=== PATIENT | male | born 2005 | race Caucasian/White ===

== ENCOUNTER 2023-11-23 18:16 | Inpatient (IN) ==
--- NOTE | 2023-11-23 18:31 | ED Triage Note ---
Date of Service November 23, 2023 Provider in Triage Author: Azalia Garcia History of Present Illness This patient was briefly evaluated while in triage. An abbreviated physical exam was performed. This patient is a 18-year-old Male who presents to the ED for evaluation of back pain. He states that 5 days ago, he was squatting and thought he pulled a muscle because he had some discomfort afterward. He developed a sharp pain in his back a few days afterward. He states pain radiates up his neck and into his chest. It is painful to breathe. Physical Exam GENERAL: Non-toxic and in no acute distress. HEENT: Pupils equal. No obvious scleral icterus. HEART: Regular rate and rhythm. LUNGS: Clear to auscultation. No accessory muscle use. NEURO: Alert and oriented. No obvious neurological deficits on quick neuro exam. Initial orders for labs and / or imaging were placed and patient was placed in the waiting area until a bed is available. Please see further documentation for the full ED course.
--- NOTE | 2023-11-23 19:07 | XRay Report ---
XR chest 1V portable CLINICAL HISTORY: Chest pain, nonspecific TECHNIQUE: Single frontal radiograph of the chest was obtained. Comparison: None available at the time of this dictation. FINDINGS: No lines and tubes are seen. The cardiomediastinal silhouette is normal. The lungs are clear. No evid ence of pleural effusion or pneumothorax. IMPRESSION: No acute chest disease. ACT 112: Negative or not required by law. Electronically signed by: Camron Singh M.D. 11/23/2023 7:06 PM
[2023-11-23 19:25] LABS: Basophils # (auto) 0.03 K/uL (0.00-0.20); Basophils % (auto) 0.3 %; Eosinophils # (auto) 0.09 K/uL (0.00-0.50); Eosinophils % (auto) 0.9 %; Hematocrit (blood only) 44.5 % (42.0-52.0); Hemoglobin 15.1 g/dl (14.0-18.0); Immature Granulocytes # (auto) 0.04 K/uL (0.01-0.20); Immature Granulocytes % (auto) 0.4 %; Lymphocytes # (auto) 1.25 K/uL (1.20-3.40); Lymphocytes % (auto) 11.9 %; Mean Corpuscular Hemoglobin 29.7 pg (25.0-34.0); Mean Corpuscular Hgb Conc 33.9 g/dL (32.0-36.0); Mean Corpuscular Volume 87.4 fL (80.0-100.0); Mean Platelet Volume 9.7 fL (9.4-12.4); Monocytes # (auto) 1.15 K/uL (0.11-0.59); Neutrophils # (auto) 7.94 K/uL (1.40-6.50); Neutrophils % (auto) 75.5 %; Platelet Count 245 K/uL (130-400); RDW Coefficient of Variation 12.9 % (11.5-14.5); RDW Standard Deviation 41.6 fL (36.4-46.3); Red Blood Count 5.09 M/uL (4.70-6.10)
[2023-11-23 19:40] LABS: Albumin Globulin Ratio 1.5 (0.9-2); Albumin Level 4.3 gm/dl (3.4-5.0); Bilirubin,Total 0.7 mg/dl (0.2-1.0); Calcium 9.2 mg/dl (8.6-10.3); Creatinine Clr Calc Pharmacy 122.7 ml/min; Est GFR (African American) 131.4 ml/min; Est GFR (Non-African American) 113.3 ml/min; Globulin 2.9 gm/dl (2.5-4.0); Potassium 3.9 mmol/L (3.5-5.1); Total Protein 7.2 gm/dl (6.0-8.3)
[2023-11-23 19:50] LABS: Troponin I High Sensitivity 1089.5 pg/ml (0-20)
[2023-11-23] MEDS: OPTIRAY 320 125ml IV ONE (20:16)
--- NOTE | 2023-11-23 20:42 | Emergency Department Note ---
Impression & Plan Myocarditis, Elevated troponin ED Provider Note NAME: MAURICIO OVIEDO AGE: 18 SEX: M : 2005 ARRIVES VIA: Walk-In INFORMANT: Patient, ED PROVIDER(S): [place] MD CHIEF COMPLAINT: Chest/back pain HPI: This is a 18-year-old male presenting for chest and back pain. Patient states that on Thursday, 5 days ago, he was lifting and doing light duty. He states he warmed up and did squats. He notes that he felt somewhat sore in his back but then by Thursday he was having different and worsening back/chest pain. He states it was worse with deep breath as well as movement. He notes when he leans forward the pain is worse as well. He notes no nausea, vomiting or diarrhea has not had any fevers or chills. No congestion. He has no arm or leg weakness/paresthesias. He noted no tearing sensation. This was not sudden onset. He does not feel short of breath currently. ROS: See above HPI for pertinent positives & negatives. A total of 10 systems reviewed and were otherwise negative. PAST MEDICAL HISTORY: See Below PAST SURGICAL HISTORY: See Below FAMILY HISTORY: See Below SOCIAL HISTORY: See Below HOME MEDICATIONS: See Below ALLERGIES: See Below VITALS: See Below PHYSICAL EXAMINATION: General: resting comfortably in no acute distress Head: Normocephalic and atraumatic Eyes: Normal inspection, extraocular muscles intact Ear, nose, throat: Normal external exam Neck: Normal range of motion Respiratory: lungs clear to auscultation bilaterally Cardiovascular: Regular rate/rhythm, no murmur GI: soft, nontender, no guarding or rebound Extremities: nontender, moves all extremities, 2+ pulses in all extremities Neuro: The patient awake and alert, appropriately conversive, no focal deficits, symmetric faces Skin: Warm, dry, and intact MEDICAL DECISION MAKING: This is a 18-year-old male patient with chest and back pain. Consider multiple etiology including muscle skeletal back pain, PE, ACS, myocarditis, dissection. -ECG independently interpreted by me with normal sinus rhythm, rate of 93, normal axis, normal ME, normal QRS, normal QTc, inferior T wave inversions in leads II, III and aVF, likely J-point elevation in leads V2 and V3, large amplitude QRS complex -Patient troponin comes back in over 1000 at this time. -Due to patient's significant elevated troponin, chest/back pain, consider dissection after history of heavy lifting. Patient CTA chest/abdomen/pelvis. Also consider PE clinically. Patient has had reassuring physical exam with normal pulses, normal neuroexam. -I accompanied the patient to CT scanner due to the critical nature of patient's current complaint. Initially ordered imaging as without contrast in arterial phase. In order to best understand abdominal pathology, also added a venous phase. No obvious dissection was noted upon my initial read in the CT room. -CT only reveals a intussusception of the small bowel. -Discussed with ANKIT Schuler with general surgery who evaluated the patient but likely not a surgical candidate -Discussed with Dr. Kaur, interventional cardiology on-call who I discussed the case with. Made aware of patient's story, EKG changes and sent a picture of the EKG. He thinks that it may be related to myocarditis clinically. Currently not a Candidate. -Will admit patient to medical service suspecting myocarditis. Patient made aware of this finding and need for admission who is comfortable with this plan. Differential diagnosis: Dissection, ACS, PE, musculoskeletal injury, myocarditis, pericarditis ER treatment provided: See below Diagnostics interpreted by me: ECG: See above Cardiac Monitoring: An order was placed for continuous cardiac monitoring. The monitor shows a rate of 99 with sinus rhythm. Laboratory studies: As stated above and show below. Imaging studies: See below. Critical Care Note: I have personally spent 60 minutes of critical care time in the direct management of this patient. This includes bedside care, interpretation of diagnostic studies, and testing, discussion with consultants, patient, and family members, and other required patient management activities. This 60 minutes is in excess of all separately billable procedures. Past Med/Surg History Social History Smoking Status: Never smoker Hx Substance Use: No Preferred Language: Pashto Communication Ability: Effective Practice Billing Associate Required: No Beliefs That Will Affect Care: None Current Living Situation Comment: Apartment in college Other Information That Helps Us Care for You: No Feels Safe at Home: Yes Safety Concerns: Feels Safe At This Time Assistive Devices: None Allergies Allergies Allergy/AdvReac Type Severity Reaction Status Date / Time No Known Allergies Allergy Verified 11/23/23 23:09 Home Meds Home Medications Medication Instructions Recorded Confirmed ibuprofen 200 mg tablet 400 mg PO BID PRN Pain 11/23/23 11/23/23 ibuprofen-diphenhydramine citrate 2 cap PO HS PRN Sleep 11/23/23 11/23/23 200 mg-38 mg tablet (Advil PM) Results & Data (ED) Vital Signs Vital Signs - 24 hr 11/23/23 18:27 11/23/23 20:01 11/23/23 20:04 Temperature 37 C Temperature Source Temporal Artery Scan Pulse Rate 110 H 88 Pulse Rate [Apical] 86 Respiratory Rate 18 30 H Respiratory Effort / Characteristics Non-Labored Respiratory Depth Normal Blood Pressure 129/75 Blood Pressure [Right Arm] 117/69 Blood Pressure Mean 93 Blood Pressure Mean [Right Arm] 85 Pulse Oximetry 99 99 Oxygen Delivery Method Room Air Room Air Sepsis Recent Fever Within 48 Hours No Sepsis New/Unexplained Change in Mental Status N/A Sepsis Action Taken by Nursing No Action Required 11/23/23 20:39 11/23/23 22:00 Temperature Temperature Source Pulse Rate 91 H 94 H Pulse Rate [Apical] Respiratory Rate 24 Respiratory Effort / Characteristics Respiratory Depth Blood Pressure 99/69 L Blood Pressure [Right Arm] Blood Pressure Mean 87 Blood Pressure Mean [Right Arm] Pulse Oximetry 98 97 Oxygen Delivery Method Room Air Room Air Sepsis Recent Fever Within 48 Hours Sepsis New/Unexplained Change in Mental Status Sepsis Action Taken by Nursing Laboratory Data 11/23/23 19:11 11/23/23 19:11 Lab Results 11/23/23 11/23/23 11/23/23 Range/Units 19:11 19:20 20:15 WBC 10.50 (4.8-10.8) K/ul RBC 5.09 (4.70-6.10) M/uL Hgb 15.1 (14.0-18.0) g/dl Hct 44.5 (42.0-52.0) % MCV 87.4 (80.0-100.0) fL MCH 29.7 (25.0-34.0) pg MCHC 33.9 (32.0-36.0) g/dL RDW Std Deviation 41.6 (36.4-46.3) fL RDW Coeff of Kennedy 12.9 (11.5-14.5) % Plt Count 245 (130-400) K/uL MPV 9.7 (9.4-12.4) fL Immature Gran % (Auto) 0.4 % Neut % (Auto) 75.5 % Lymph % (Auto) 11.9 % Troup % (Auto) 11.0 % Eos % (Auto) 0.9 % Baso % (Auto) 0.3 % Neut # (Auto) 7.94 H (1.40-6.50) K/uL Lymph # (Auto) 1.25 (1.20-3.40) K/uL Troup # (Auto) 1.15 H (0.11-0.59) K/uL Eos # (Auto) 0.09 (0.00-0.50) K/uL Baso # (Auto) 0.03 (0.00-0.20) K/uL Immature Gran # (Auto) 0.04 (0.01-0.20) K/uL ESR 30 H (0-15) mm/hr D-Dimer Cancelled 1310 H* Sodium 138 (136-145) mmol/L Potassium 3.9 (3.5-5.1) mmol/L Chloride 103 (98-107) mmol/L Carbon Dioxide 28 (21-32) mmol/L Anion Gap 7 (3-11) BUN 23 (6-23) mg/dl Creatinine 0.96 (0.6-1.4) mg/dl Est Cr Clr Drug Dosing 122.7 ml/min Est GFR ( Amer) 131.4 ml/min Est GFR (Non-Af Amer) 113.3 ml/min BUN/Creatinine Ratio 24.0 H (10-20) Glucose 106 H (70-99(Fasting)) mg/dl Lactate 0.9 (0.4-2.0) mmol/L Calcium 9.2 (8.6-10.3) mg/dl Total Bilirubin 0.7 (0.2-1.0) mg/dl AST 31 (13-39) U/L ALT 30 (7-52) U/L Alkaline Phosphatase 59 (34-104) U/L Total Creatine Kinase 164 (30-223) U/L Troponin I High Sens 1089.5 H* (0-20) pg/ml Total Protein 7.2 (6.0-8.3) gm/dl Albumin 4.3 (3.4-5.0) gm/dl Globulin 2.9 (2.5-4.0) gm/dl Albumin/Globulin Ratio 1.5 (0.9-2) Adenovirus (PCR) Not Detected (NotDetected) Anaplasma Smear See Comment Babesia Smear See Comment B. pertussis DNA (PCR) Not Detected (NotDetected) B.parapertussis DNA PCR Not Detected (NotDetected) C. pneumoniae DNA (PCR) Not Detected (NotDetected) Coronavirus OC43 (PCR) Not Detected (NotDetected) Coronavirus HKU1 (PCR) Not Detected (NotDetected) Coronavirus 229E (PCR) Not Detected (NotDetected) SARS-CoV-2 (PCR) Not Detected (NotDetected) Coronavirus NL63 (PCR) Not Detected (NotDetected) Human Metapneumovir PCR Not Detected (NotDetected) Influenza Type A (PCR) Not Detected (NotDetected) Influenza Type B (PCR) Not Detected (NotDetected) M. pneumoniae (PCR) Not Detected (NotDetected) Parainfluenza 1 (PCR) Not Detected (NotDetected) Parainfluenza 2 (PCR) Not Detected (NotDetected) Parainfluenza 3 (PCR) Not Detected (NotDetected) Parainfluenza 4 (PCR) Not Detected (NotDetected) RSV (PCR) Not Detected (NotDetected) Entero/Rhino (PCR) Not Detected (NotDetected) 11/23/23 Range/Units 20:45 WBC (4.8-10.8) K/ul RBC (4.70-6.10) M/uL Hgb (14.0-18.0) g/dl Hct (42.0-52.0) % MCV (80.0-100.0) fL MCH (25.0-34.0) pg MCHC (32.0-36.0) g/dL RDW Std Deviation (36.4-46.3) fL RDW Coeff of Kennedy (11.5-14.5) % Plt Count (130-400) K/uL MPV (9.4-12.4) fL Immature Gran % (Auto) % Neut % (Auto) % Lymph % (Auto) % Troup % (Auto) % Eos % (Auto) % Baso % (Auto) % Neut # (Auto) (1.40-6.50) K/uL Lymph # (Auto) (1.20-3.40) K/uL Troup # (Auto) (0.11-0.59) K/uL Eos # (Auto) (0.00-0.50) K/uL Baso # (Auto) (0.00-0.20) K/uL Immature Gran # (Auto) (0.01-0.20) K/uL ESR (0-15) mm/hr D-Dimer Sodium (136-145) mmol/L Potassium (3.5-5.1) mmol/L Chloride (98-107) mmol/L Carbon Dioxide (21-32) mmol/L Anion Gap (3-11) BUN (6-23) mg/dl Creatinine (0.6-1.4) mg/dl Est Cr Clr Drug Dosing ml/min Est GFR ( Amer) ml/min Est GFR (Non-Af Amer) ml/min BUN/Creatinine Ratio (10-20) Glucose (70-99(Fasting)) mg/dl Lactate (0.4-2.0) mmol/L Calcium (8.6-10.3) mg/dl Total Bilirubin (0.2-1.0) mg/dl AST (13-39) U/L ALT (7-52) U/L Alkaline Phosphatase (34-104) U/L Total Creatine Kinase (30-223) U/L Troponin I High Sens 870.6 H* D (0-20) pg/ml Total Protein (6.0-8.3) gm/dl Albumin (3.4-5.0) gm/dl Globulin (2.5-4.0) gm/dl Albumin/Globulin Ratio (0.9-2) Adenovirus (PCR) (NotDetected) Anaplasma Smear Babesia Smear B. pertussis DNA (PCR) (NotDetected) B.parapertussis DNA PCR (NotDetected) C. pneumoniae DNA (PCR) (NotDetected) Coronavirus OC43 (PCR) (NotDetected) Coronavirus HKU1 (PCR) (NotDetected) Coronavirus 229E (PCR) (NotDetected) SARS-CoV-2 (PCR) (NotDetected) Coronavirus NL63 (PCR) (NotDetected) Human Metapneumovir PCR (NotDetected) Influenza Type A (PCR) (NotDetected) Influenza Type B (PCR) (NotDetected) M. pneumoniae (PCR) (NotDetected) Parainfluenza 1 (PCR) (NotDetected) Parainfluenza 2 (PCR) (NotDetected) Parainfluenza 3 (PCR) (NotDetected) Parainfluenza 4 (PCR) (NotDetected) RSV (PCR) (NotDetected) Entero/Rhino (PCR) (NotDetected) Administered Medications Acetaminophen (Acetaminophen 325 Mg Tab) 650 mg PO Q4H PRN PRN Reason: Pain or Fever Stop: 12/23/23 23:50 Last Admin: 11/24/23 08:39 Dose: 650 mg Documented By: MTP Metoprolol Tartrate (Metoprolol Tartrate 25 Mg Tab) 12.5 mg PO BID KIRA Stop: 12/24/23 11:29 Last Admin: 11/24/23 12:13 Dose: 12.5 mg Documented By: ISIDRA Tramadol HCl (Tramadol Hcl 50 Mg Tablet) 50 mg PO Q6H PRN PRN Reason: Pain Stop: 12/23/23 23:42 Last Admin: 11/24/23 06:06 Dose: 50 mg Documented By: Admin: 11/24/23 00:11 Dose: 50 mg Documented By: SYDNEY Discontinued Medications Acetaminophen (Acetaminophen 1000 Mg/100 Ml Iv) Confirm Administered Dose 1,000 mg IV .STK-MED ONE Stop: 11/23/23 22:18 Last Admin: 11/23/23 22:37 Dose: 1,000 mg Documented By: SYDNEY Colchicine (Colchicine 0.6 Mg Tab) 0.6 mg PO NOW ONE Stop: 11/24/23 11:23 Last Admin: 11/24/23 12:15 Dose: 0.6 mg Documented By: ISIDRA Acetaminophen (Ofirmev) 1,000 mg in 100 mls @ 400 mls/hr IV NOW STA Stop: 11/23/23 22:17 Last Admin: 11/23/23 22:39 Dose: Not Given Documented By: SYDNEY Ioversol (Optiray 320 125ml) 118 ml IV ONCE ONE Stop: 11/23/23 20:16 Last Admin: 11/23/23 20:16 Dose: 118 ml Documented By: KULWANT Ketorolac Tromethamine (Ketorolac 30 Mg/Ml Vial) 30 mg IV NOW ONE Stop: 11/24/23 11:21 Last Admin: 11/24/23 11:55 Dose: 30 mg Documented By: ISIDRA Miscellaneous Information (Patient's Allergy Info Needs Entered) 1 each N/A Q30M [facility] Stop: 12/23/23 18:26 Last Admin: 11/23/23 22:38 Dose: Not Given Documented By: Admin: 11/23/23 22:37 Dose: Not Given Documented By: Admin: 11/23/23 22:36 Dose: Not Given Documented By: [facility] Admin: 11/23/23 22:36 Dose: Not Given Documented By: [facility] Admin: 11/23/23 22:36 Dose: Not Given Documented By: Admin: 11/23/23 22:36 Dose: Not Given Documented By: [facility] Admin: 11/23/23 22:36 Dose: Not Given Documented By: [facility] Admin: 11/23/23 22:36 Dose: Not Given Documented By: [facility] Admin: 11/23/23 22:36 Dose: 1 each Documented By: SYDNEY Imaging Data Radiologist's Impression: Chest X-Ray 11/23/23 18:31 XR chest 1V portable CLINICAL HISTORY: Chest pain, nonspecific TECHNIQUE: Single frontal radiograph of the chest was obtained. Comparison: None available at the time of this dictation. FINDINGS: No lines and tubes are seen. The cardiomediastinal silhouette is normal. The lungs are clear. No evidence of pleural effusion or pneumothorax. IMPRESSION: No acute chest disease. ACT 112: Negative or not required by law. Electronically signed by: Camron Singh M.D. 11/23/2023 7:06 PM Abdomen/Pelvis CTA 11/23/23 20:03 Exam(s): CTA ABDOMEN + PELVIS W/WO Contrast IV Amt: 118ml optiray 320 EXAM: CT Abdomen and Pelvis Without and With Intravenous Contrast CLINICAL HISTORY: Reason for exam: dissection. TECHNIQUE: Axial computed tomographic images of the abdomen and pelvis without and with intravenous contrast. CTDI is 76 mGy and DLP is 2696.61 mGy-cm. Automated exposure control was utilized for the study. A dose lowering technique was utilized adhering to the principles of ALARA. Delayed imaging was performed. CONTRAST: Patient received 118ml optiray 320 of IV contrast COMPARISON: CT abdomen pelvis 12/13/2022.. FINDINGS: VASCULATURE: Aorta: No acute findings. No abdominal aortic aneurysm. No dissection. Celiac trunk and mesenteric arteries: No acute findings. No occlusion or significant stenosis. Renal arteries: No acute findings. No occlusion or significant stenosis. Iliac arteries: No acute findings. No occlusion or significant stenosis. Lung bases: Unremarkable. No mass. No consolidation. ABDOMEN: Liver: Unremarkable. No mass. Gallbladder and bile ducts: Unremarkable. No calcified stones. No ductal dilation. Pancreas: Unremarkable. No ductal dilation. No mass. Spleen: Unremarkable. No splenomegaly. Adrenals: Unremarkable. No mass. Kidneys and ureters: Unremarkable. No obstructing stones. No hydronephrosis. No solid mass. Stomach and bowel: Short segment small bowel small bowel intussusception in the lower abdomen just to the left of midline. No obstruction. No mucosal thickening. PELVIS: Appendix: No findings to suggest acute appendicitis. Bladder: Unremarkable. No stones. No mass. Reproductive: Unremarkable as visualized. ABDOMEN and PELVIS: Intraperitoneal space: Trace fluid in the pelvis. No free air. Bones/joints: L4 limbus vertebra. No acute fracture. No dislocation. Soft tissues: Unremarkable. Lymph nodes: Unremarkable. No enlarged lymph nodes. IMPRESSION: 1. No evidence of abdominal aortic aneurysm or dissection. 2. Short segment small bowel-small bowel intussusception in the lower abdomen just to the left of midline. This is most likely a transient incidental finding. Electronically signed by: Souleymane Patterson MD 11/23/23 20:58 PM Chest CTA 11/23/23 20:03 Exam(s): CTA CHEST W/WO Contrast IV Amt: 118ML OPTIRAY 320 EXAM: CT Angiography Chest Without and With Intravenous Contrast CLINICAL HISTORY: Reason for exam: Dissection. TECHNIQUE: Axial computed tomographic angiography images of the chest without and with intravenous contrast. CTDI is 76 mGy and DLP is 2696.61 mGy-cm. Automated exposure control was utilized for the study. A dose lowering technique was utilized adhering to the principles of ALARA. MIP reconstructed images were created and reviewed. CONTRAST: Patient received 118ML OPTIRAY 320 of IV contrast COMPARISON: None. FINDINGS: Pulmonary arteries: Unremarkable. No pulmonary embolism. Aorta: No acute findings. No thoracic aortic aneurysm. Lungs: Unremarkable. No mass. No consolidation. Pleural space: Unremarkable. No significant effusion. No pneumothorax. Heart: Unremarkable. No cardiomegaly. No significant pericardial effusion. No evidence of RV dysfunction. Bones/joints: No acute fracture. No dislocation. Soft tissues: Unremarkable. Lymph nodes: Unremarkable. No enlarged lymph nodes. IMPRESSION: No acute abnormality. Electronically signed by: Souleymane Pattersno MD 11/23/23 20:48 PM Discharge Plan Visit Data Chief Complaint: Back Injury/Pain Stated Complaint: BACK/CHEST PAIN FROM LIFTING ED Provider: [place] Discharge Problem: Myocarditis, Elevated troponin Patient Disposition: Admitted As Inpatient Discharge Instructions Interventions: ED Discharge Assessment Last Done: 11/23/23 23:51
--- NOTE | 2023-11-23 20:49 | CT Scan Report ---
Exam(s): CTA CHEST W/WO Contrast IV Amt: 118ML OPTIRAY 320 EXAM: CT Angiography Chest Without and With Intravenous Contrast CLINICAL HISTORY: Reason for exam: Dissection. TECHNIQUE: Axial computed tomographic angiography images of the chest without and with intravenous contrast. CTDI is 76 mGy and DLP is 2696.61 mGy-cm. Automated exposure control was utilized for the study. A dose lowering technique was utilized adhering to the principles of ALARA. MIP reconstructed images were created and reviewed. CONTRAST: Patient received 118ML OPTIRAY 320 of IV contrast COMPARISON: None. FINDINGS: Pulmonary arteries: Unremarkable. No pulmonary embolism. Aorta: No acute findings. No thoracic aortic aneurysm. Lungs: Unremarkable. No mass. No consolidation. Pleural space: Unremarkable. No significant effusion. No pneumothorax. Heart: Unremarkable. No cardiomegaly. No significant pericardial effusion. No evidence of RV dysfunction. Bones/joints: No acute fracture. No dislocation. Soft tissues: Unremarkable. Lymph nodes: Unremarkable. No enlarged lymph nodes. IMPRESSION: No acute abnormality. Electronically signed by: Souleymane Patterson MD 11/23/23 20:48 PM
--- NOTE | 2023-11-23 20:59 | CT Scan Report ---
Exam(s): CTA ABDOMEN + PELVIS W/WO Contrast IV Amt: 118ml optiray 320 EXAM: CT Abdomen and Pelvis Without and With Intravenous Contrast CLINICAL HISTORY: Reason for exam: dissection. TECHNIQUE: Axial computed tomographic images of the abdomen and pelvis without and with intravenous contrast. CTDI is 76 mGy and DLP is 2696.61 mGy-cm. Automated exposure control was utilized for the study. A dose lowering technique was utilized adhering to the principles of ALARA. Delayed imaging was performed. CONTRAST: Patient received 118ml optiray 320 of IV contrast COMPARISON: CT abdomen pelvis 12/13/2022.. FINDINGS: VASCULATURE: Aorta: No acute findings. No abdominal aortic aneurysm. No dissection. Celiac trunk and mesenteric arteries: No acute findings. No occlusion or significant stenosis. Renal arteries: No acute findings. No occlusion or significant stenosis. Iliac arteries: No acute findings. No occlusion or significant stenosis. Lung bases: Unremarkable. No mass. No consolidation. ABDOMEN: Liver: Unremarkable. No mass. Gallbladder and bile ducts: Unremarkable. No calcified stones. No ductal dilation. Pancreas: Unremarkable. No ductal dilation. No mass. Spleen: Unremarkable. No splenomegaly. Adrenals: Unremarkable. No mass. Kidneys and ureters: Unremarkable. No obstructing stones. No hydronephrosis. No solid mass. Stomach and bowel: Short segment small bowel small bowel intussusception in the lower abdomen just to the left of midline. No obstruction. No mucosal thickening. PELVIS: Appendix: No findings to suggest acute appendicitis. Bladder: Unremarkable. No stones. No mass. Reproductive: Unremarkable as visualized. ABDOMEN and PELVIS: Intraperitoneal space: Trace fluid in the pelvis. No free air. Bones/joints: L4 limbus vertebra. No acute fracture. No dislocation. Soft tissues: Unremarkable. Lymph nodes: Unremarkable. No enlarged lymph nodes. IMPRESSION: 1. No evidence of abdominal aortic aneurysm or dissection. 2. Short segment small bowel-small bowel intussusception in the lower abdomen just to the left of midline. This is most likely a transient incidental finding. Electronically signed by: Souleymane Patterson MD 11/23/23 20:58 PM
--- NOTE | 2023-11-23 21:49 | Surgery Consultation ---
<Statement entered by Macario Yang, - 11/24/23 19:07> This case was discussed with the surgical PA Date of Consultation November 23, 2023 Assessment & Plan (1) Abnormal CT scan: I evaluated the patient emergency department in room A9 due to concerns for transient small bowel intussusception. As noted in the history present illness patient has absolutely no abdominal complaints specifically no abdominal pain, no nausea or vomiting, no signs or symptoms of GI bleed, and is having normal bowel movements earlier today. At the time of my exam his abdominal exam is entirely benign. He does not have leukocytosis, elevated lactic acid level, or elevated creatinine. I suspect that the CT scan findings noted were transient finding no active surgical intervention is required. The patient is being admitted to the hospital due to concern for myocarditis and treatment of this will be deferred to the admitting service and the treating emergency room physician. I did discuss the above with the treating emergency room physician. History of Present Illness Reason for Consultation: Concern for small bowel intussusception History of Present Illness This is a 18-year-old male who presented to the emergency department secondary to back pain. Patient notes that he performed a weightlifting workout consisting of squats earlier today. After performing this activity the patient developed some pain in his back in the midportion between his scapula. He said that the pain also radiated to his chest and neck. He denied any modifying factors. He has never had this happen after lifting weights before. He specifically denies any abdominal pain or nausea or vomiting. He notes he had a normal bowel movement this morning and has not had any melena or bright blood per rectum. He has never had abdominal surgery before. The patient does note that he does not use any [id number] supplements. He notes that he occasionally uses marijuana but denies any other recreational drug use. Since arrival to the emergency department patient has had labs and imaging which independent reviewed. A chest x-ray did not show any active disease in the chest. A CT scan of the chest abdomen pelvis did not show any acute abnormalities in the chest specifically no pulmonary emboli or aortic dissection. The CT scan of the abdomen did not show any evidence of aortic aneurysm or dissection. There was concern the patient had a short segment of small bowel to small bowel intussusception that the interpreting radiologist felt was likely transient due to incidental finding. Labs included CBC her white blood cell count, hemoglobin, hematocrit, platelet count were normal. Chemistry profile showed sodium and potassium along with the BUN and creatinine were normal. He had a lactic acid level checked that was nonelevated at 0.9. Patient did have a troponin level checked that was elevated at 1089.5. An EKG showed normal sinus rhythm. There was concern for T wave inversion in leads II, III and aVF. At the time of my interview the patient was resting comfortably bed he was no distress. Concerning past medical history he denies any medical problems Concerning past surgical history denies any prior surgeries Concerning allergies he denies allergies Concerning social history the patient uses marijuana Patient History Social History Smoking Status: Former smoker Preferred Language: Belarusian Feels Safe at Home: Yes Review of Systems Constitutional: + body aches; no fever and no chills Ear, Nose, Mouth, Throat: no hearing loss Respiratory: no cough and no dyspnea Cardiovascular: + chest pain Gastrointestinal: no abdominal pain, no nausea and no vomiting Genitourinary: no hematuria Musculoskeletal: + back pain Integumentary: no rash Neurologic: no localized weakness Physical Exam Constitutional: WD/WN, vitals as above Eyes: no conjunctival abnormality ENMT: Ears: no hearing impairment and no external ear abnormality Mouth: no oropharynx abnormality Neck: trachea midline Respiratory: normal respiratory effort; no respiratory distress and no labored breathing Cardiovascular: Rate/Rhythm: regular rate and regular rhythm Vessels: dorsalis pedis pulses present and radial pulses present Gastrointestinal (Abdomen): Abdomen is soft and nondistended. There is no pain with palpation. There is no rebound tenderness or guarding Musculoskeletal: No tense muscle compartments noted in the upper lower extremities Skin: no rashes Neurologic: moves all extremities Psychiatric: A+Ox3, euthymic affect Results & Data Vital Signs (Past 12 Hours) Vital Signs Temp Pulse Pulse Resp BP BP Pulse Ox 11/23/23 20:39 91 H 98 11/23/23 20:04 88 11/23/23 20:01 86 30 H 117/69 99 11/23/23 18:27 37 C 110 H 18 129/75 99 O2 Del Method 11/23/23 20:39 Room Air 11/23/23 20:04 11/23/23 20:01 Room Air 11/23/23 18:27 Room Air PG Care Time/CCT Total # of Minutes Spent Total Time Spent with Patient: Total time spent is greater than 50% in coordination of care (as documented) at patient's floor/unit and/or counseling patient: Coding Level of Care Code 46086 IN/OBS CONSULT LVL 5,80M Diagnoses Abnormal CT scan R93.89
[2023-11-23 22:09] LABS: D Dimer 1310 ug/L FEU (0-500)
--- NOTE | 2023-11-23 22:33 | History & Physical Report ---
Date of Service November 23, 2023 Assessment & Plan (1) Chest pain: (2) Elevated troponin: (3) Back pain: Plan 18 year old male with no significant past medical history presenting with chest pain. Pt with elevated troponin and dynamic changes on EKG, though still low suspicion for ACS based on age and duration of sx. With negative CTA, unclear etiology for sx. Differential includes tick-borne illness vs viral myocarditis vs other. Chest Pain, Elevated Troponin: Repeat troponin Bio[employer] respiratory panel ordered Tick-borne illness panel ordered (Lyme, Babesia, Anaplasma) ESR/EVON ordered TTE ordered ?Intussusception: Surgery consulted, suspect this is transient change Continue to monitor for new abdominal sx History of Present Illness Primary Care Provider: NO PCP 18 year old male with no significant past medical history presenting with chest pain. Patient notes that he was lifting weights last week, initially thought he may have pulled a muscle in his back. Over the next few days, back pain began to radiate into his neck and into his chest. Currently notes sharp, constant substernal pain, worse with movement or when taking a deep breath. Also worse when leaning forward. Denies recent illness, no known tick bites, denies personal or family history of autoimmune or connective tissue disorders. ED Course: EKG with T-wave inversions in inferior leads Labs significant for elevated troponin 1089, repeat 870. D-dimer elevated at 1310. CK WNL. CTA chest with no acute abnormality noted. CTA abdomen/pelvis without evidence of AAA or dissection but notes short segment small bowel-small bowel intussusception Allergies Allergy/AdvReac Type Severity Reaction Status Date / Time No Known Allergies Allergy Verified 11/23/23 23:09 Home Medications Medication Instructions Recorded Confirmed Type colchicine 0.6 mg tablet 0.6 mg PO BID #60 tabs 11/24/23 Rx ibuprofen 600 mg tablet 600 mg PO TID 2 weeks #42 tabs 11/24/23 Rx metoprolol tartrate 25 mg tablet 12.5 mg (1/2 x 25 mg) PO BID #60 11/24/23 Rx tabs Past Med/Surg History Social History Smoking Status: Never smoker Hx Substance Use: No Preferred Language: Kazakh Communication Ability: Effective Market President Required: No Beliefs That Will Affect Care: None Current Living Situation Comment: Apartment in college Feels Safe at Home: Yes Assistive Devices: None Review of Systems Review of Systems: as per HPI Physical Exam Physical Exam: General: WDWN, in mild distress Cardiac: Mildly tachycardic with regular rhythm, no murmurs appreciated Respiratory: Lungs clear to auscultation bilaterally, No increased work of breathing, +tachypnea Abdominal: Soft, non-distended. notes pain in chest when abdomen is palpated. Bowel sounds present. Psych: mood affect congruence Results & Data Results & Data Vital Signs (Past 12 Hours) Vital Signs Temp Pulse Pulse Resp BP BP Pulse Ox 11/23/23 20:39 91 H 98 11/23/23 20:04 88 11/23/23 20:01 86 30 H 117/69 99 11/23/23 18:27 37 C 110 H 18 129/75 99 O2 Del Method 11/23/23 20:39 Room Air 11/23/23 20:04 11/23/23 20:01 Room Air 11/23/23 18:27 Room Air Supervising Physician Co-Signing Physician Notes Attending addendum: I have physically seen this patient, have supervised the medical residents activities, and agree with the H&P unless as otherwise noted. Assessment and Plan: Elevated troponin/bilateral diaphragmatic area chest pain- The patient will be admitted to telemetry for serial cardiac enzymes, serial EKG's, cardiac rhythm monitoring and a 2-D echocardiogram with Dopplers. Initial troponin 1089.5, with follow-up 870.6 Differential including but not limited to: PE, myocarditis, pericarditis, tickborne infection, viral infection, ischemic event Discussed with cardiology, no heparin at this time Order viral studies, tickborne studies, sed rate and EVON CT angiography chest negative for PE Consult cardiology Possible intussusception- Assessed by cardiology and ENT, who felt that this was more of a transient change but will follow during hospital stay Resident Activity Tracking Resident Involvement: Resident Care Provided Care Provided: Adult Hospital Medicine
[2023-11-23] MEDS: Patient's ALLERGY Info needs ENTERED SCH (22:36)
[2023-11-23] MEDS: ACETAMINOPHEN 1000 MG/100 ML IV IV ONE (22:37)
[2023-11-23] MEDS: ACETAMINOPHEN 1,000 MG/100 ML VIAL IV STA (22:39)
[2023-11-23 23:35] LABS: Adenovirus PCR Not Detected (NotDetected); Bordetella parapertussis PCR Not Detected (NotDetected); Bordetella pertussis PCR Not Detected (NotDetected); Chlamydia pneumoniae PCR Not Detected (NotDetected); Coronavirus 229E PCR Not Detected (NotDetected); Coronavirus CoV-2 (COVID19)PCR Not Detected (NotDetected); Coronavirus HKU1 PCR Not Detected (NotDetected); Coronavirus NL63 PCR Not Detected (NotDetected); Coronavirus OC43PCR Not Detected (NotDetected); Human Metapneumovirus PCR Not Detected (NotDetected); Influenza A PCR Not Detected (NotDetected); Influenza B PCR Not Detected (NotDetected); Mycoplasma pneumoniae PCR Not Detected (NotDetected); Parainfluenza Virus 1 PCR Not Detected (NotDetected); Parainfluenza Virus 2 PCR Not Detected (NotDetected); Parainfluenza Virus 3 PCR Not Detected (NotDetected); Parainfluenza Virus 4 PCR Not Detected (NotDetected); Respiratory Syncytial VirusPCR Not Detected (NotDetected); Rhinovirus/Enterovirus PCR Not Detected (NotDetected)
[2023-11-23] MEDS ORDERED: traMADol HCL 50 MG TABLET PO PRN (23:43)
[2023-11-23] MEDS ORDERED: POLYETHYLENE (MIRALAX) 17 GM PACK PO PRN (23:51)
[2023-11-24] MEDS: traMADol HCL 50 MG TABLET PO PRN (00:11)
[2023-11-24] MEDS: ACETAMINOPHEN 325 MG TAB PO PRN (08:39)
--- NOTE | 2023-11-24 09:48 | XCELERA ---
[id number]
--- NOTE | 2023-11-24 11:19 | Cardiology Consultation ---
Date of Consultation November 24, 2023 Assessment & Plan (1) Elevated troponin: (2) Chest pain: Plan 1. Chest pain: The patient was more concerned about back pain at the time of admission. It is possible that it suffered injury from weightlifting in concert with developing of myocarditis. His symptoms may in fact overlap. However, he does have elevated biomarkers which is suggestive of myocardial injury. Possibly some myopericarditis given the pleuritic nature and positional nature of his symptoms. However, there is some concern for mildly reduced LV systolic function. Very difficult to manager documentation in an athletic individual. No other high risk features. Not febrile. No arrhythmias. No evidence of pulmonary vascular congestion or heart failure. I think we will treat him conservatively with some anti-inflammatories. Will trial a low-dose of beta-blockade as well. I would recommend activity restriction with no significant exercise for several weeks until he follows up in the clinic for re-evaluation. 2. Elevated troponin: Again, most likely related to an inflammatory process. Most likely viral in nature. Curiously, total CK is normal. This would suggest a low level injury. No recent vaccinations or positive titers for known viruses. He does not have symptoms for connective tissue disease. No anemia or GI symptoms to suggest celiac disease. 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 Patient states that several days ago he began to experience symptoms back discomfort. This occurred gradually and he attributed to lifting weights. Symptoms eventually generalized to involve his neck and chest. Symptoms were positional in nature and pleuritic as well. He tried some remedies at home such as stretching and nonsteroidal medications. These provided minimal. Did not report associated breathing difficulty but just some trouble taking a deep breath due to pain. One episode of dizziness over the course of the past few days occurred when he sat up quickly. No sense of palpitation. He denied symptoms of a viral illness. No recent congestion. No fevers or chills. No generalized myalgias or joint pains. Did not report any sick contacts. In general he is an active individual who is accustomed to routine exercise. He runs regularly. He performs resistance training. He previously played football and other sports. He not report any specific limitations associated with this activity until recently. Despite administration of some analgesics he continued to have symptoms throughout the course of the evening but this morning I believe with a dose of tramadol he seems to have had some improvement. Poor sleep last night. Allergies Allergy/AdvReac Type Severity Reaction Status Date / Time No Known Allergies Allergy Verified 11/23/23 23:09 Home Medications Medication Instructions Recorded Confirmed Type ibuprofen 200 mg tablet 400 mg PO BID PRN Pain 11/23/23 11/23/23 History ibuprofen-diphenhydramine citrate 2 cap PO HS PRN Sleep 11/23/23 11/23/23 History 200 mg-38 mg tablet (Advil PM) Patient History Social History Smoking Status: Never smoker Hx Substance Use: No Preferred Language: Kiswahili Communication Ability: Effective Lighting Fixtures Decorator Required: No Beliefs That Will Affect Care: None Current Living Situation Comment: Apartment in college Other Information That Helps Us Care for You: No Feels Safe at Home: Yes Safety Concerns: Feels Safe At This Time Review of Systems Review of Systems: Per HPI. No recent vaccinations. Remote history of suspected COVID. Physical Exam Physical Exam: The patient is alert and oriented. Mood and affect appeared normal. He answered all questions appropriately. HEENT: Pupils are equal and reactive to light and accommodation. Extraocular movements are intact. The sclerae are anicteric. Neuro: Cranial nerves intact Lungs: Clear to auscultation bilaterally. He has good air movement without use of accessory muscles. No rales wheezes or rhonchi. Cardiac: Heart demonstrates a regular rate and rhythm. Normal S1 and S2. No murmurs on examination. Pulses: The patient has palpable radial pulses bilaterally that are equal in intensity Extremities: There was no evidence of hypoperfusion. There is no cyanosis or clubbing. There is no edema. Skin: I did not appreciate any rashes on examination today. Results & Data Vital Signs (Past 12 Hours) Vital Signs Temp Pulse Pulse Resp BP BP Pulse Ox 11/24/23 07:48 37 C 11/24/23 07:29 89 20 106/61 97 11/24/23 02:14 98 H 11/24/23 02:13 37.5 C 87 18 113/65 95 11/23/23 23:54 90 O2 Del Method 11/24/23 07:48 11/24/23 07:29 11/24/23 02:14 11/24/23 02:13 Room Air 11/23/23 23:54 Laboratory Results Abnormal Lab Results 11/23/23 11/23/23 11/23/23 19:11 19:20 20:15 WBC 10.50 RBC 5.09 Hgb 15.1 Hct 44.5 MCV 87.4 MCH 29.7 MCHC 33.9 RDW Std Deviation 41.6 RDW Coeff of Kennedy 12.9 Plt Count 245 MPV 9.7 Immature Gran % (Auto) 0.4 Neut % (Auto) 75.5 Lymph % (Auto) 11.9 Coos % (Auto) 11.0 Eos % (Auto) 0.9 Baso % (Auto) 0.3 Neut # (Auto) 7.94 H Lymph # (Auto) 1.25 Coos # (Auto) 1.15 H Eos # (Auto) 0.09 Baso # (Auto) 0.03 Immature Gran # (Auto) 0.04 ESR 30 H D-Dimer Cancelled 1310 H* Sodium 138 Potassium 3.9 Chloride 103 Carbon Dioxide 28 Anion Gap 7 BUN 23 Creatinine 0.96 Est Cr Clr Drug Dosing 122.7 Est GFR ( Amer) 131.4 Est GFR (Non-Af Amer) 113.3 BUN/Creatinine Ratio 24.0 H Glucose 106 H Lactate 0.9 Calcium 9.2 Total Bilirubin 0.7 AST 31 ALT 30 Alkaline Phosphatase 59 Total Creatine Kinase 164 Troponin I High Sens 1089.5 H* Total Protein 7.2 Albumin 4.3 Globulin 2.9 Albumin/Globulin Ratio 1.5 Adenovirus (PCR) Not Detected Anaplasma Smear See Comment Babesia Smear See Comment B. pertussis DNA (PCR) Not Detected B.parapertussis DNA PCR Not Detected Lyme Disease Screen Tick Lyme Diseas (PCR) C. pneumoniae DNA (PCR) Not Detected Coronavirus OC43 (PCR) Not Detected Coronavirus HKU1 (PCR) Not Detected Coronavirus 229E (PCR) Not Detected SARS-CoV-2 (PCR) Not Detected Coronavirus NL63 (PCR) Not Detected Monoscreen Human Metapneumovir PCR Not Detected Influenza Type A (PCR) Not Detected Influenza Type B (PCR) Not Detected M. pneumoniae (PCR) Not Detected Parainfluenza 1 (PCR) Not Detected Parainfluenza 2 (PCR) Not Detected Parainfluenza 3 (PCR) Not Detected Parainfluenza 4 (PCR) Not Detected RSV (PCR) Not Detected Entero/Rhino (PCR) Not Detected 11/23/23 11/23/23 11/24/23 20:45 23:25 01:30 WBC RBC Hgb Hct MCV MCH MCHC RDW Std Deviation RDW Coeff of Kennedy Plt Count MPV Immature Gran % (Auto) Neut % (Auto) Lymph % (Auto) Coos % (Auto) Eos % (Auto) Baso % (Auto) Neut # (Auto) Lymph # (Auto) Coos # (Auto) Eos # (Auto) Baso # (Auto) Immature Gran # (Auto) ESR D-Dimer Sodium Potassium Chloride Carbon Dioxide Anion Gap BUN Creatinine Est Cr Clr Drug Dosing Est GFR ( Amer) Est GFR (Non-Af Amer) BUN/Creatinine Ratio Glucose Lactate Calcium Total Bilirubin AST ALT Alkaline Phosphatase Total Creatine Kinase 130 Troponin I High Sens 870.6 H* D 905.0 H* 913.2 H* Total Protein Albumin Globulin Albumin/Globulin Ratio Adenovirus (PCR) Anaplasma Smear Babesia Smear B. pertussis DNA (PCR) B.parapertussis DNA PCR Lyme Disease Screen Negative Tick Lyme Diseas (PCR) Cancelled C. pneumoniae DNA (PCR) Coronavirus OC43 (PCR) Coronavirus HKU1 (PCR) Coronavirus 229E (PCR) SARS-CoV-2 (PCR) Coronavirus NL63 (PCR) Monoscreen Negative Human Metapneumovir PCR Influenza Type A (PCR) Influenza Type B (PCR) M. pneumoniae (PCR) Parainfluenza 1 (PCR) Parainfluenza 2 (PCR) Parainfluenza 3 (PCR) Parainfluenza 4 (PCR) RSV (PCR) Entero/Rhino (PCR) 11/24/23 07:04 WBC RBC Hgb Hct MCV MCH MCHC RDW Std Deviation RDW Coeff of Kennedy Plt Count MPV Immature Gran % (Auto) Neut % (Auto) Lymph % (Auto) Coos % (Auto) Eos % (Auto) Baso % (Auto) Neut # (Auto) Lymph # (Auto) Coos # (Auto) Eos # (Auto) Baso # (Auto) Immature Gran # (Auto) ESR D-Dimer Sodium Potassium Chloride Carbon Dioxide Anion Gap BUN Creatinine Est Cr Clr Drug Dosing Est GFR ( Amer) Est GFR (Non-Af Amer) BUN/Creatinine Ratio Glucose Lactate Calcium Total Bilirubin AST ALT Alkaline Phosphatase Total Creatine Kinase Troponin I High Sens 698.6 H* D Total Protein Albumin Globulin Albumin/Globulin Ratio Adenovirus (PCR) Anaplasma Smear Babesia Smear B. pertussis DNA (PCR) B.parapertussis DNA PCR Lyme Disease Screen Tick Lyme Diseas (PCR) C. pneumoniae DNA (PCR) Coronavirus OC43 (PCR) Coronavirus HKU1 (PCR) Coronavirus 229E (PCR) SARS-CoV-2 (PCR) Coronavirus NL63 (PCR) Monoscreen Human Metapneumovir PCR Influenza Type A (PCR) Influenza Type B (PCR) M. pneumoniae (PCR) Parainfluenza 1 (PCR) Parainfluenza 2 (PCR) Parainfluenza 3 (PCR) Parainfluenza 4 (PCR) RSV (PCR) Entero/Rhino (PCR) Diagnostic Findings Echocardiogram dated 11/24/2023: Borderline reduced LV systolic function with ejection fraction around 45-50%. No significant valvular heart disease. PFO suspected. Chest CTA obtained to the time of admission did not demonstrate Any acute abnormalities. Specific acute aortic findings. No pericardial effusion. ECG Additional Comments: The time admission revealed normal sinus rhythm with some T-wave inversions in the inferior limb leads and V6. There is a change from an EKG obtained in December 2022. PG Care Time/CCT Total # of Minutes Spent Total Time Spent with Patient: Total time spent is greater than 50% in coordination of care (as documented) at patient's floor/unit and/or counseling patient: Coding Level of Care Code 46462 IN/OBS CONSULT LVL 4,60M Diagnoses Elevated troponin R79.89 Chest pain R07.9
[2023-11-24] MEDS: KETOROLAC 30 MG/ML VIAL IV ONE ×2 (11:55→17:56)
[2023-11-24] MEDS: METOPROLOL TARTRATE 25 MG TAB PO SCH (12:13)
[2023-11-24] MEDS: COLCHICINE 0.6 MG TAB PO ONE (12:15)
--- NOTE | 2023-11-24 14:39 | Electrocardiogram Report ---
Test Reason : Blood Pressure : / mmHG Vent. Rate : 093 BPM Atrial Rate : 093 BPM P-R Int : 120 ms QRS Dur : 100 ms QT Int : 340 ms P-R-T Axes : 057 064 -46 degrees QTc Int : 422 ms Normal sinus rhythm T wave inversions in inferior leads Abnormal ECG When compared with ECG of 13-DEC-2022 22:59, T wave inversion more evident in Inferior leads Nonspecific T wave abnormality now evident in Lateral leads Confirmed by Esvin Salomon ([id number]) on 11/24/2023 2:39:31 PM Referred By: REFERRED SELF Confirmed By:Ankush Salomon
--- NOTE | 2023-11-24 14:42 | Electrocardiogram Report ---
Test Reason : Blood Pressure : / mmHG Vent. Rate : 090 BPM Atrial Rate : 090 BPM P-R Int : 116 ms QRS Dur : 100 ms QT Int : 334 ms P-R-T Axes : 049 067 -25 degrees QTc Int : 408 ms Normal sinus rhythm T wave inversions in the inferior leads Abnormal ECG When compared with ECG of 23-NOV-2023 19:06, (unconfirmed) No significant change was found Confirmed by Esvin Salomon ([id number]) on 11/24/2023 2:42:08 PM Referred By: REFERRED SELF Confirmed By:Ankush Salomon
--- NOTE | 2023-11-24 15:35 | Surgery Progress Note ---
<Statement entered by Macario Yang DO - 11/24/23 19:02> I have seen and examined this patient this am with the surgical PA. I agree with the plan. Date of Service November 24, 2023 Assessment & Plan (1) Myocarditis: Plan: Patient here wtih chest pain after lifting weights -workup concerning for myocarditis -on CT scan he was found to have an incidental finding of short segment small bowel-small bowel intussusception, likely transient in nature -he is tolerating diet, with no abdominal pain, and was otherwise having + bowel function -on exam abdomen is soft, non tender....again CT scan findings likely transient in nature -no indications for surgical intervention, diet as tolerates okay -cardiology following -we will sign off but call back if any questions/concerns (2) Abnormal CT scan: Admission and Anticipated Discharge Date Admission Date: November 23, 2023 Subjective Patient feeling fine. No abdominal pain. Some chest discomfort with breathing, otherwise stable. Physical Exam Physical Exam: awake/alert, no distress Respiratory: normal respiratory effort Gastrointestinal (Abdomen): Percussion/Palpation: abdomen soft; abdomen nontender Results & Data Vital Signs (Past 12 Hours) Vital Signs Temp Pulse Resp BP Pulse Ox 11/24/23 12:00 75 20 11/24/23 11:00 71 21 11/24/23 10:00 63 22 11/24/23 09:00 84 23 11/24/23 08:00 82 18 11/24/23 07:48 98.6 F 11/24/23 07:29 89 20 106/61 97 PG Care Time/CCT Total # of Minutes Spent Total Time Spent with Patient: Total time spent is greater than 50% in coordination of care (as documented) at patient's floor/unit and/or counseling patient: Coding Level of Care Code 36283 SUB INP/OBS CARE 1/25MIN Diagnoses Myocarditis I51.[address] scan R93.89
--- NOTE | 2023-11-24 16:37 | Discharge Summary ---
Date of Service November 24, 2023 Admission HPI Per Admitting Provider 18 year old male with no significant past medical history presenting with chest pain. Patient notes that he was lifting weights last week, initially thought he may have pulled a muscle in his back. Over the next few days, back pain began to radiate into his neck and into his chest. Currently notes sharp, constant substernal pain, worse with movement or when taking a deep breath. Also worse when leaning forward. Denies recent illness, no known tick bites, denies personal or family history of autoimmune or connective tissue disorders. ED Course: EKG with T-wave inversions in inferior leads Labs significant for elevated troponin 1089, repeat 870. D-dimer elevated at 1310. CK WNL. CTA chest with no acute abnormality noted. CTA abdomen/pelvis without evidence of AAA or dissection but notes short segment small bowel-small bowel intussusception Principal Diagnosis myopericarditis Discharge Exam General: WDWN Cardiac: regular rate and rhythm, no murmurs appreciated Respiratory: Lungs clear to auscultation bilaterally, No increased work of breathing Abdominal: Soft, non-distended. notes pain in chest when abdomen is palpated. Bowel sounds present. Psych: mood affect congruence Discharge Data Allergies Allergy/AdvReac Type Severity Reaction Status Date / Time No Known Allergies Allergy Verified 11/23/23 23:09 Consultations 11/23/23 21:31 ED Decision to Admit Stat 11/24/23 08:20 Consult Cardiology Routine Ordered Studies 11/23/23 20:03 CTA abd pelvis wo/w con [CT angio abd pelvis wo/w con] Stat CTA chest dissec wo/w con [CT angio chest dissec wo/w con] Stat Hospital Course (1) Chest pain: Plan 18 year old male with no significant past medical history presenting with chest pain. Pt with elevated troponin and dynamic changes on EKG, though still low suspicion for ACS based on age and duration of sx. With negative CTA, unclear etiology for sx. Chest Pain, Elevated Troponin: Likely due to myopericarditis. Echo did show a slightly lower EF. Trop is downtrending. Discussed with cardiology, can discharge with NSAID and colchicine. will recommend activity restriction. recommend followup with cardiology and PCP as an outpatient. Patient does not meet criteria for PPI as he has a lack of PUD, is not above 65, nor is taking other medications that would put him at risk of a GI bleed. ruled out Intussusception: Surgery consulted, suspect this is transient change Patient is pain free Total Time Total Time Spent Total Time Spent (In Minutes): 32 Discharge Plan Discharge Items Patient Disposition: Home - Self-Care Reason For Visit: CHEST PAIN Discharge Diagnosis: chest pain Activity: Resume your previous activity Non-emergency contact: Primary Care Provider Call non-emergency contact if: you have any medication questions Follow-up/Referrals: PCP,NO [Primary Care Provider] - Diet: Regular Addtl Attending Provider Instructions: You were diagnosed with myopericarditis. Your cardiac makers were elevated. Thankfully, the treatment is easy. It will be a combination of ibuprofen and colchicine. You will also need to restrict yourself from strenuous activity. Ibuprofen will be 600 mg three times a day for 1-2 weeks. Once your symptoms subside, we recommend tapering the ibuprofen down by 200 mg a week. So by week 3 you will be taking about 400mg three times a day. Week 4, 200 mg three times a day. Colchicine is easier, just twice a day. This will be for 3 months. Recommend followup with PCP in about 2 weeks Recommend followup with Cardiology within 2-4 weeks. Activity restrictionStrenuous physical activity may trigger recurrence of symptoms; therefore, such activity should be avoided until cleared by your doctor. (For several weeks) Ok to golf, but would at least wait 10-14 days. Pending Studies at Discharge: No Stand-Alone Forms: My [facility], Smoking Cessation Medications and DC Order Prescriptions: New colchicine 0.6 mg tablet 0.6 mg PO BID Qty: 60 0RF ibuprofen 600 mg tablet 600 mg PO TID 14 Days Qty: 42 0RF metoprolol tartrate 25 mg Tablet 12.5 mg PO BID Qty: 60 0RF Discontinued ibuprofen 200 mg Tablet 400 mg PO BID PRN (Reason: Pain) Advil PM 200-38 mg Tablet 2 cap PO HS PRN (Reason: Sleep) Discharge Orders: Discharge Order (Routine); Ordered 11/24/23 Ordered By: Jose Michaud Admission Data Admit Date/Time: 11/23/23 22:25 Attending Provider: Jose Michaud Admit Provider: Faustino Deras Primary Care Provider: PCP,NO Other Providers: Sarbjit Lora,Kip M.; Olivier Miles; Axel Atkins; Wilder Balderrama; Kendrick Mullen; Rodney Lynch Jr; Jerald Degroot; Lucille Ventura; Anabel Cardenas; Esvin Dockery; Esvin Salomon; Lenin Minaya; Tierra Chu; Essie Elliott; Dylon Redding; Riley Saul; Carlos Parisi Coding Level of Care Code 16959 INP/OBS DISCH >30 MIN Diagnoses Chest pain R07.9
[2023-11-24] MEDS: PANTOprazole 40 MG TAB PO SCH (17:30)
--- NOTE | 2023-11-24 19:14 | Billing Data ---
Date of Service November 24, 2023 Coding Level of Care Code 04762 INT INP/OBS CARE
[2023-11-25 14:27] LABS: Epstein Barr Virus Early Ag Ab <9.00 U/mL
[2023-11-25 14:41] LABS: Anti Nuclear Antibody Screen NEGATIVE (NEGATIVE)
[2023-11-26 23:02] LABS: Babesia microti DNA Not Detected (Not Detected)
[2023-11-29 17:19] LABS: Coxsackie A10 <1:8; Coxsackie A16 <1:8; Coxsackie A2 <1:8; Coxsackie A4 <1:8; Coxsackie A7 <1:8; Coxsackie A9 <1:8
== END 2023-11-24 18:37 | disposition home or self-care (01) | DRG 316 ==
LOC: ED 18:16 → EDINP 22:25 → SUATTDRO 22:25 → 1E 23:51